=== PATIENT | male | born 1985 | race American Indian/Alaskan Native ===

== ENCOUNTER 2016-05-28 21:23 | Emergency (ER) | payer SELFPAY ==
[2016-05-28 22:21] VITALS: BP 158/94
== END 2016-05-29 02:10 | disposition left against medical advice (07) ==
LOC: ED 21:23
DX: R09.81 Nasal congestion (principal); Z53.21 Procedure and treatment not carried out due to patient leaving prior to being seen by health care provider

== ENCOUNTER 2016-12-25 21:00 | Emergency (ER) | payer OTHER ==
[2016-12-25 21:24] VITALS: BP 147/76
== END 2016-12-26 05:44 | disposition left against medical advice (07) ==
LOC: ED 21:00
DX: R51 Headache (principal); Z53.21 Procedure and treatment not carried out due to patient leaving prior to being seen by health care provider

== ENCOUNTER 2019-04-14 18:54 | Emergency (ER) | payer SELFPAY ==
[2019-04-14 22:29] VITALS: BP 145/85
--- NOTE | 2019-04-14 22:31 | Emergency Department Report ---
Chief Complaint: Upper Respiratory Infection Stated Complaint: FLU Time Seen by Provider: 04/14/19 22:26 - HPI History of Present Illness: 33 y/o male comes in for return to work excuse. No fever no chills. - Exam Vital Signs: Vital Signs 04/14/19 19:33 Temperature 98.5 F Pulse Rate 75 Respiratory 18 Rate Blood Pressure 169/73 O2 Sat by Pulse 97 Oximetry Physical Exam: AxO times 3 NAD ambulatory without difficulties. MSE screening note: Focused history and physical exam performed. Due to findings the following was ordered: ED Disposition for MSE Disposition: MED SCREENING EXAM-LEFT Is pt being admited?: No Does the pt Need Aspirin: No Condition: Stable Forms: Work/School Release Form(ED)
== END 2019-04-14 22:30 | disposition left against medical advice (07) ==
LOC: ED 18:54
DX: J06.9 Acute upper respiratory infection, unspecified (principal)
CPT/HCPCS: 99281

== ENCOUNTER 2019-12-23 10:15 | Outpatient (CLI) | payer OTHER ==
[2019-12-25 14:39] LABS: CD4/CD8 Ratio 1.24 (0.86-5.00)
== END 2019-12-23 10:16 | disposition home or self-care (01) ==
LOC: LAB 10:15
PROVIDERS: ATTEND Internal Medicine
DX: E78.00 Pure hypercholesterolemia, unspecified (principal); I10 Essential (primary) hypertension; E11.9 Type 2 diabetes mellitus without complications; B20 Human immunodeficiency virus [HIV] disease
CPT/HCPCS: 36415; 82024